=== PATIENT | female | born 1955 | race Caucasian/White ===

== ENCOUNTER → 2018-03-21 09:40 | Outpatient (CLI) | payer OTHER, SELFPAY ==
[2018-03-21 10:54] LABS: Erythrocyte Sedimentation Rate 5 MM/HR (0-20)
[2018-03-21 10:58] LABS: Uric Acid 5.5 mg/dL (2.5-6.2)
[2018-03-21 11:03] LABS: C-Reactive Protein Quant < 0.5 mg/dL (<1.0); Rheumatoid Factor < 8.6 IU/mL (<12.0)
[2018-03-22 20:19] LABS: ANA Pattern Homogeneous; ANA Screen, IFA Positive (Negative)
[2018-03-27 18:53] LABS: HLA B27 NEGATIVE (Negative)
== END ==
PROVIDERS: PCP Family Medicine; Visit Provider Podiatrist
DX: M19.079 Primary osteoarthritis, unspecified ankle and foot (principal); M21.6X1 Other acquired deformities of right foot; M25.571 Pain in right ankle and joints of right foot; M79.671 Pain in right foot
CPT/HCPCS: 36415; 84550; 85651; 86038; 86140; 86430; 86812

== ENCOUNTER → 2020-08-12 16:30 | Outpatient (CLI) | payer MEDICARE, OTHER, SELFPAY ==
[2020-08-12] MEDS: COVID-19 VACC #1, MRNA(MOD) 100 MCG/0.5 ML VIAL IM (16:41)
== END ==
PROVIDERS: Visit Provider Internal Medicine
DX: Z23 Encounter for immunization (principal)
CPT/HCPCS: 0011A; 91301

== ENCOUNTER → 2020-09-09 15:38 | Outpatient (CLI) | payer MEDICARE, OTHER, SELFPAY ==
[2020-09-09] MEDS: COVID-19 VACC #2, MRNA(MOD) 100 MCG/0.5 ML VIAL IM (15:41)
== END ==
PROVIDERS: Visit Provider Internal Medicine
DX: Z23 Encounter for immunization (principal)
CPT/HCPCS: 0012A; 91301

== ENCOUNTER 2020-12-20 10:36 | Emergency (ER) | payer MEDICARE, OTHER, SELFPAY ==
[2020-12-20 10:49] VITALS: BP 158/67; PULSE 79; RESP 16; TEMP 36.8; O2SAT 97; BMI 25.0
[2020-12-20 11:09] LABS: Bacteria Urine None Seen; RBC Urine None Seen (0-5/HPF); WBC Urine None Seen (0-5/HPF)
[2020-12-20 11:15] LABS: Culture Indicated Urine Cult Not Indicated; Urine Comments Microscopic Normal
--- NOTE | 2020-12-20 11:18 | DI.CT.S_ITS ---
PROCEDURE: CT ABDOMEN PELVIS W CON INDICATIONS: lower abdominal pain TECHNIQUE: After the administration of intravenous contrast, 5 mm thick sections acquired from the diaphragm to the symphysis. 5 mm coronal and sagittal reformats were acquired. For radiation dose reduction, the following was used: automated exposure control, adjustment of mA and/or kV according to patient size. COMPARISON: None. FINDINGS: Image quality: Excellent. ABDOMEN: Lung bases: Lung bases are clear. Heart size is normal. Solid organs: Liver is normal in size and enhancement. Status post cholecystectomy. Biliary system is non dilated. Pancreas enhances normally. Spleen is normal in size and enhancement. No adrenal nodules. The right kidney has a 2 centimeters cyst. Peritoneum and bowel: The distal esophagus, stomach, and small bowel are normal. There is wall thickening of the sigmoid colon with surrounding inflammation consistent with diverticulosis with no evidence of acute diverticulitis. Nodes and vessels: No retroperitoneal or mesenteric adenopathy by size criteria. Aorta and inferior vena cava are normal in size. Miscellaneous: No ventral hernia. Prior hernia repair of the anterior abdominal wall is noted. PELVIS: Genitourinary: Bladder wall thickness is normal. Miscellaneous: No inguinal hernias or adenopathy. Bones: The patient is status post pedicular screw and elijah fixation of L5-S1. IMPRESSION: Acute diverticulitis of the sigmoid colon with no evidence of perforation or abscess. Dictated by: Earl Montague M.D. on 12/20/2020 at 12:29 Approved by: Earl Montague M.D. on 12/20/2020 at 12:35
--- NOTE | 2020-12-20 11:30 | ED_ITS ---
HPI - Abdominal Pain General Chief Complaint: Urogenital-Female Stated Complaint: EXTREME PAIN IN LOWER ABDOMEN/BACK Time Seen by Provider: 12/20/20 11:10 Source: patient Mode of arrival: Ambulatory Limitations: no limitations History of Present Illness HPI narrative: Patient is a 65-year-old female who presents with lower abdominal pain ongoing for about 2 days. She said it started the evening before with lower abdominal cramping and pain. She thought was a UTI ice she had some mild dysuria she drinks lot of water she has not noticed any urinary frequency however pain is all across her abdomen. She had a normal bowel movement without any blood. She denies any flank pain. No nausea or vomiting. MD complaint: abdominal pain Onset (ago): day(s) (2) Pain Consistency: constant Location: LLQ and RLQ Severity: moderate Quality: cramping Radiation: none Migration to: no migration Related Data Previous Rx's Medication Instructions Recorded ketorolac 10 mg PO Q6HP PRN #15 tab 03/22/17 ciprofloxacin HCl [Cipro] 500 mg PO BID #14 tab 12/20/20 metronidazole [Flagyl] 500 mg PO Q8H #21 tab 12/20/20 Allergies Allergy/AdvReac Type Severity Reaction Status Date / Time No Known Drug Allergies Allergy Verified 12/20/20 11:55 Review of Systems Review of Systems Narrative: GENERAL: Denies chills, fatigue, malaise, fever, sweats, travel HEENT: Denies sinus pain, ear pain, sore throat, difficulty swallowing, neck pain RESPIRATORY: Denies dyspnea, cough, wheezing, hemoptysis, sputum. CARDIOVASCULAR: Denies chest pain, palpitations, orthopnea, edema GASTROINTESTINAL: See HPI : Denies dysuria, frequency, incontinence, hematuria, urinary retention, flank pain. MUSCULOSKELETAL: Denies weakness, joint pain, or bony pain SKIN: No rash, no erythema, no pruritus NEUROLOGIC: Denies weakness, dizziness, headache, numbness, change in speech, confusion PSYCHIATRIC: No concerning psychosocial issues. 12 point review of systems is negative except for those stated above and HPI Patient History Medical History Irritable bowel syndrome Exam Initial Vital Signs Initial Vital Signs: Vital Signs Temperature 98.3 F 12/20/20 10:49 Pulse Rate 79 12/20/20 10:49 Respiratory Rate 16 12/20/20 10:49 Blood Pressure 158/67 H 12/20/20 10:49 Pulse Oximetry 97 12/20/20 10:49 GENERAL: Well-appearing, well-nourished and in no acute distress. HEENT: Head atraumatic,EOMI, pupils reactive, face symmetric, moist mucous membranes CARDIOVASCULAR: Regular rate and rhythm without murmurs, rubs or gallops. RESPIRATORY: Breath sounds equal bilaterally, no wheezes rales or rhonchi. ABDOMEN: Soft, mild lower abdominal tenderness : No CVA tenderness EXTREMITIES: Normal range of motion, no clubbing or edema. Neurovascularly intact NEUROLOGICAL: Alert and oriented x4.Normal gait and speech. Cranial nerves II through XII grossly intact. SKIN: Warm, dry, no laceration, no petechiae, no rashes or lesions. Course Orders Ordered: ED Orders 12/20/20 10:50 Urine Microscopic Stat 12/20/20 11:18 CT abdomen pelvis w con Stat 12/20/20 11:28 Complete Blood Count AUTO DIFF Stat Comprehensive Metabolic Panel Stat Lipase Stat Discontinued Medications Ketorolac Tromethamine (Ketorolac 30 Mg/Ml Vial) 30 mg IV NOW ONE Stop: 12/20/20 11:18 Last Admin: 12/20/20 11:38 Dose: 30 mg Documented by: [email or web address] Vital Signs Vital signs: Vital Signs - 8 hr 12/20/20 10:49 12/20/20 11:35 12/20/20 12:02 Temperature 98.3 F Pulse Rate 79 67 64 Respiratory Rate 16 Blood Pressure 158/67 H Pulse Oximetry 97 96 95 12/20/20 12:03 12/20/20 12:30 12/20/20 13:00 Temperature Pulse Rate 67 64 61 Respiratory Rate Blood Pressure 121/61 119/56 L 115/62 Pulse Oximetry 93 94 94 MDM - Abdominal Pain Lab Data Attestation: I reviewed the patient's lab results. Result diagrams: 12/20/20 11:28 12/20/20 11:28 Labs: Lab Results 12/20/20 12/20/20 12/20/20 Range/Units 10:50 11:28 11:28 WBC 13.9 H (4.5-11.0) X10^3/uL RBC 4.66 (4.0-5.2) X10^6/uL Hgb 14.4 (12.0-16.0) g/dL Hct 41.9 (36-46) % MCV 90.0 (80-100) fL MCH 30.8 (26-34) PG MCHC 34.2 (30-36) % RDW 13.5 (11.6-14.8) % Plt Count 223 (150-400) X10^3/uL Neut % (Auto) 80.9 H (50-75) % Lymph % (Auto) 10.7 L (25-40) % [place] % (Auto) 7.8 (3-14) % Eos % (Auto) 0.1 L (2-4) % Baso % (Auto) 0.5 (0-2) % Neut # (Auto) 89043 H (4167-4374) /uL Lymph # (Auto) 1500 (2865-0608) /uL [place] # (Auto) 1100 H (0-900) /uL Eos # (Auto) 0 (0-450) /uL Baso # (Auto) 100 (0-100) /uL Sodium 138 (137-145) mmol/L Potassium 3.8 (3.4-5.1) mmol/L Chloride 105 (98-107) mmol/L Carbon Dioxide 25 (22-32) mmol/L BUN 12 (7-17) mg/dL Creatinine 0.89 (0.52-1.04) mg/dL Estimated GFR > 60.0 (>60) mL/min BUN/Creatinine Ratio 13.5 (6-22) Glucose 110 (80-110) mg/dL Calcium 9.5 (8.4-10.2) mg/dL Total Bilirubin 1.6 H (0.2-1.3) mg/dL AST 22 (14-36) IU/L ALT 13 (<35) IU/L Alkaline Phosphatase 78 (38-126) U/L Total Protein 7.4 (6.3-8.2) g/dL Albumin 4.3 (3.5-5.0) g/dL Globulin 3.1 (1.7-4.1) g/dL Albumin/Globulin Ratio 1.4 (1.0-2.8) Lipase 68 (23-300) U/L Urine RBC None seen (0-5/HPF) Urine WBC None seen (0-5/HPF) Urine Bacteria None seen (None) Ur Culture Indicated? Cult not indicated Micro UA Comment Microscopic normal Point of care testing: Urine Dip Bedside Urine Glucose Negative Bedside Urine Bilirubin + 1 Bedside Urine Ketone - Negative Urine Specific [place] 1.030 Bedside Urine Occult Blood + Bedside Urine pH 6.0 Bedside Urine Protein + 30 Bedside Urine Urobilinogen - Negative Bedside Urine Nitrite - Negative Bedside Urine Leukocytes - Negative Esterase Imaging Data CT scan - abdomen/pelvis: Radiologist's Impression: PROCEDURE: CT ABDOMEN PELVIS W CON INDICATIONS: lower abdominal pain TECHNIQUE: After the administration of intravenous contrast, 5 mm thick sections acquired from the diaphragm to the symphysis. 5 mm coronal and sagittal reformats were acquired. For radiation dose reduction, the following was used: automated exposure control, adjustment of mA and/or kV according to patient size. COMPARISON: None. FINDINGS: Image quality: Excellent. ABDOMEN: Lung bases: Lung bases are clear. Heart size is normal. Solid organs: Liver is normal in size and enhancement. Status post cholecystectomy. Biliary system is non dilated. Pancreas enhances normally. Spleen is normal in size and enhancement. No adrenal nodules. The right kidney has a 2 centimeters cyst. Peritoneum and bowel: The distal esophagus, stomach, and small bowel are normal. There is wall thickening of the sigmoid colon with surrounding inflammation consistent with diverticulosis with no evidence of acute diverticulitis. Nodes and vessels: No retroperitoneal or mesenteric adenopathy by size crite alonso. Aorta and inferior vena cava are normal in size. Miscellaneous: No ventral hernia. Prior hernia repair of the anterior abdominal wall is noted. PELVIS: Genitourinary: Bladder wall thickness is normal. Miscellaneous: No inguinal hernias or adenopathy. Bones: The patient is status post pedicular screw and elijah fixation of L5-S1. IMPRESSION: Acute diverticulitis of the sigmoid colon with no evidence of perforation or abscess. Dictated by: Earl Montague M.D. on 12/20/2020 at 12:29 MDM Narrative Medical decision making narrative: Patient has no sign of UTI tender all across the abdomen concern for abdominal pathology. CT abdomen it does confirm that she has diverticulitis with mild leukocytosis and no complication. At this time can be treated as an outpatient with antibiotics and pain control. Discharge Plan Departure Patient Disposition: Home Clinical Impression: Diverticulitis Instructions: DI for Diverticulitis Activity Restrictions/Additional Instructions: *You have been diagnosed with diverticulitis *What to do: Increased fluid intake, may need to increase fiber after who have healed from this *Continue to take medications as directed Flagyl 500 mg 3 times a day for 7 days Cipro 500 mg twice a day for 7 days Motrin 600 mg every 6-8 hours if needed for [id number] pain Tylenol 650 mg every 4-6 hours if needed for [id number] pain *Follow up with your primary care provider in 2-3 days *Return to ER if you should have increasing pain, bloody stools, persistent fever or any new, worsening or concerning symptoms Prescriptions: New metronidazole [Flagyl] 500 mg tablet 500 mg PO Q8H Qty: 21 RF: 0 ciprofloxacin HCl [Cipro] 500 mg tablet 500 mg PO BID Qty: 14 RF: 0 No Action ketorolac 10 MG tablet 10 mg PO Q6HP PRNQty: 15 RF: 0
[2020-12-20 11:35] VITALS: PULSE 67; O2SAT 96
[2020-12-20 11:37] LABS: Add Manual Diff / Slide Review NO; Basophils Absolute Auto 100 /uL (0-100); Basophils Percent Auto 0.5 % (0-2); Eosinophils Absolute Auto 0 /uL (0-450); Eosinophils Percent Auto 0.1 % (2-4); Hematocrit 41.9 % (36-46); Hemoglobin 14.4 g/dL (12.0-16.0); Lymphocytes Absolute Auto 1500 /uL (1100-4500); Lymphocytes Percent Auto 10.7 % (25-40); Mean Corpuscular HGB Conc 34.2 % (30-36); Mean Corpuscular Hemoglobin 30.8 PG (26-34); Monocytes Absolute Auto 1100 /uL (0-900); Monocytes Percent Auto 7.8 % (3-14); Neutrophils Absolute Auto 11200 /uL (1500-7000); Neutrophils Percent Auto 80.9 % (50-75); Platelet Count 223 X10^3/uL (150-400); Red Blood Cell Count 4.66 X10^6/uL (4.0-5.2); Red Cell Distribution Width 13.5 % (11.6-14.8); White Blood Cell Count 13.9 X10^3/uL (4.5-11.0)
[2020-12-20] MEDS: KETOROLAC 30 MG/ML VIAL IV (11:38)
[2020-12-20 11:46] LABS: Alanine Aminotransferase 13 IU/L (<35); Albumin 4.3 g/dL (3.5-5.0); Albumin Globulin Ratio 1.4 (1.0-2.8); Alkaline Phosphatase 78 U/L (38-126); Aspartate Aminotransferase 22 IU/L (14-36); BUN Creatinine Ratio 13.5 (6-22); Bilirubin Total 1.6 mg/dL (0.2-1.3); Blood Urea Nitrogen 12 mg/dL (7-17); Calcium 9.5 mg/dL (8.4-10.2); Carbon Dioxide 25 mmol/L (22-32); Chloride 105 mmol/L (98-107); Estimated Glomerular Filt Rate > 60.0 mL/min (>60); Globulin 3.1 g/dL (1.7-4.1); Glucose 110 mg/dL (80-110); HEMOLYSIS < 15 (0-50); Lipase 68 U/L (23-300); Potassium 3.8 mmol/L (3.4-5.1); Sodium 138 mmol/L (137-145); Total Protein 7.4 g/dL (6.3-8.2)
[2020-12-20 12:02] VITALS: PULSE 64; O2SAT 95
[2020-12-20 12:03] VITALS: BP 121/61; PULSE 67; O2SAT 93
[2020-12-20 12:30] VITALS: BP 119/56; PULSE 64; O2SAT 94
[2020-12-20 13:00] VITALS: BP 115/62; PULSE 61; O2SAT 94
== END 2020-12-20 13:14 | disposition home or self-care (01) ==
PROVIDERS: Emergency Provider Emergency Medicine
DX: K57.92 Diverticulitis of intestine, part unspecified, without perforation or abscess without bleeding (principal); R30.0 Dysuria
CPT/HCPCS: 36415; 74177; 80053; 81003; 81015; 83690; 85025; 96374; 99284; J1885; Q9967